=== PATIENT | male | born 1965 | race African-American/Black ===

== ENCOUNTER 2022-04-03 13:23 | Emergency (ER) | payer MEDICAID, OTHER ==
[~2022-04-03] VITALS: Ht 175.3 cm; Wt 105.0 kg
[2022-04-03 13:31] VITALS: BP 117/83
[2022-04-03] MEDS ORDERED: ACETAMINOPHEN 325MG TABLET PO ONE (15:45)
[2022-04-03] MEDS ORDERED: ACYCLOVIR 400 MG TABLET PO ONE (15:45)
[2022-04-03] MEDS ORDERED: AMOXICILLIN 500 MG CAPSULE PO ONE (15:45)
[2022-04-03] MEDS ORDERED: ACYC200C31 PO (15:51)
[2022-04-03] MEDS ORDERED: TOPUD PO (15:53)
[2022-04-03] MEDS ORDERED: MORP15TA67 MT (15:53)
[2022-04-03] MEDS ORDERED: AMOX-494 MT (15:53)
[2022-04-03] MEDS ORDERED: DIPH25CA83 PO (15:54)
== END 2022-04-03 16:25 | disposition home or self-care (01) ==
LOC: ER 13:23
DX: R21 Rash and other nonspecific skin eruption (principal); H92.01 Otalgia, right ear; Z88.6 Allergy status to analgesic agent
CPT/HCPCS: 99284